=== PATIENT | female | born 1950 | race Caucasian/White ===

== ENCOUNTER → 2016-08-31 | Outpatient (CLI) | payer MEDICARE, BC ==
--- NOTE | 2016-09-01 08:34 | RAD ---
EXAM DESCRIPTION: Knee,Left Complete CLINICAL HISTORY: 65 years, Female, HIP PAIN COMPARISON: None. FINDINGS: No fracture or dislocation. Medial joint compartment almost completely lost with sclerosis and articular irregularity. Moderate narrowing patellofemoral joint space with spurring. Possible small joint effusion. Small amount of popliteal artery calcification noted. IMPRESSION: No acute fracture or dislocation. Virtual complete loss of the medial joint compartment. Moderate narrowing patellofemoral joint space. Electronically signed by: Keshav Cosby MD 09/01/2016 8:33 AM CDT
--- NOTE | 2016-09-01 08:35 | RAD ---
EXAM DESCRIPTION: Pelvis CLINICAL HISTORY: 65 years, Female, HIP PAIN COMPARISON: FINDINGS: No definite fracture or dislocation. Mild degenerative narrowing of both hips fairly symmetric. Pelvic ring intact. Mild degenerative changes lower lumbar spine. Several phleboliths over the lower pelvis. IMPRESSION: Mild degenerative change without fracture or dislocation Electronically signed by: Keshav Cosby MD 09/01/2016 8:34 AM CDT
== END ==
LOC: RAD 09:07
PROVIDERS: ATTEND Orthopaedic Surgery
DX: M25.562 Pain in left knee (principal); M25.862 Other specified joint disorders, left knee; M25.552 Pain in left hip; Z01.818 Encounter for other preprocedural examination

== ENCOUNTER 2016-09-19 05:55 | Day surgery (SDC) | payer MEDICARE, BC ==
--- NOTE | 2016-09-15 09:21 | HP ---
CHIEF COMPLAINT: Right wrist pain and hand numbness. HISTORY OF PRESENT ILLNESS: Adali is a 65-year-old patient with a history of pain in the wrist and numbness in the digits. She localizes the numbness to the median nerve distribution. She has radiation of pain proximal to the wrist and no numbness proximal to the wrist. She has tried conservative measures and has failed. She is requesting surgery. After discussing the risks, benefits and alternatives to that, the patient has given informed consent. PAST SURGICAL HISTORY: 1. Right total knee replacement. MEDICATIONS: 1. Lotrel. 2. [place]. 3. Dexilant. 4. Viibryd. 5. Risperdal. 6. Ambien. ALLERGIES: NO KNOWN DRUG ALLERGIES. CODE STATUS: Full code. IMMUNIZATIONS: Up to date. SOCIAL HISTORY: The patient does not drink, smoke or use any illicit drugs. FAMILY HISTORY: None pertinent to today's complaint. REVIEW OF SYSTEMS: Negative except as indicated in the History of Present Illness. PHYSICAL EXAMINATION: VITAL SIGNS: Blood pressure 147/81. Pulse 81. Height 5'5". Weight 154. MENTAL STATUS: The patient is awake, alert, and is able to give a good history and participate in the physical. The patient is oriented to person, place and time. SKIN: Normal tone and turgor. MUSCULOSKELETAL: She has positive Tinel's today as well as positive Phalen's. She has positive carpal compression test. She maintains full range of motion in all digits. Sensation is intact. The digits are warm and well perfused. ASSESSMENT: 1. Carpal tunnel syndrome. PLAN: The plan at this point is for carpal tunnel release. We have discussed the risks, benefits, and alternatives to that and the patient has given informed consent. #[id number] [facility]
[2016-09-19] MEDS ORDERED: ceFAZolin SODIUM 1 GM VIAL ONE (06:13)
[2016-09-19] MEDS ORDERED: LACTATED RINGERS 1,000 ML ONE (06:13)
[2016-09-19] MEDS ORDERED: SODIUM CHL 0.9% 50ML MIN-BAG+ 50 ML IVPB ONE (06:14)
[2016-09-19] MEDS ORDERED: LIDOCAINE 1% 50 ML VIAL INJ ONE (07:16)
[2016-09-19] MEDS ORDERED: BUPIVACAINE 0.25% INJ 30 ML VIAL INJ ONE (07:16)
[2016-09-19] MEDS ORDERED: fentaNYL CITRATE INJ 50 MCG/ML AMP ONE (09:44)
[2016-09-19] MEDS: ceFAZolin SODIUM 1 GM VIAL ONE ×2 (10:09→10:20)
[2016-09-19] MEDS: VANCOMYCIN HCL INJ 1,000 MG VIAL IVPB ONE ×2 (10:09→10:20)
[2016-09-19] MEDS ORDERED: PROPOFOL 200 MG/20 ML VIAL IV ONE (11:00)
[2016-09-19] MEDS ORDERED: LIDOCAINE 1% 10 ML VIAL INJ ONE (11:00)
[2016-09-19 13:51] VITALS: BP 164/81; TEMP 98.6; O2SAT 99
--- NOTE | 2016-09-20 16:50 | OP ---
DATE OF PROCEDURE: 09/19/16 PREOPERATIVE DIAGNOSIS: 1. Carpal tunnel syndrome. POSTOPERATIVE DIAGNOSIS: 1. Carpal tunnel syndrome. PROCEDURE: 1. Carpal tunnel release. SURGEON: Adalberto Lowe M.D. RECYCLING MANAGER: Juan Olson CST, SA-C ANESTHESIA: Local with sedation. COMPLICATIONS: None. FINDINGS: Thickening of the transverse carpal ligament with narrowing of the median nerve across the carpal tunnel. INDICATION FOR PROCEDURE: Ms. Lamb has a long history of symptoms consistent with carpal tunnel syndrome. She has had a confirmatory EMG. Because of her ongoing symptoms and her severe disruption in daily life, she has requested operative intervention. After discussing the risks, benefits, and alternatives to operative intervention, she has given informed consent for that. DESCRIPTION OF PROCEDURE: The patient was brought to the Operating Room and placed in the supine position. Sedation was administered and local anesthetic was injected into the operative area under sterile conditions. After the injection of anesthetic, the arm was sterilely prepped and draped. A longitudinal incision was made directly overlying the transverse carpal ligament and blunt dissection was carried down to the ligament. The transverse carpal ligament was sharply transected along its length and a [place] elevator was used to ensure complete release of the ligament. Once release had been confirmed, the wound was thoroughly irrigated and the wound was closed with Nylon suture. A sterile dressing was placed and the patient was taken to the Day Surgery Unit. POSTOPERATIVE INSTRUCTIONS: She will be doing range of motion of the digits and she will followup with us in two days. #[id number] [facility]
== END 2016-09-19 11:05 | disposition home or self-care (01) ==
LOC: AMB 05:55
PROVIDERS: ATTEND Orthopaedic Surgery
DX: G56.01 Carpal tunnel syndrome, right upper limb (principal); Z96.651 Presence of right artificial knee joint; Z79.899 Other long term (current) drug therapy
CPT/HCPCS: 01810; 64721; J0690; J3010; J3370; J3490; J7050; J7120

== ENCOUNTER → 2017-02-02 | Outpatient (CLI) | payer MEDICARE, BC | END | disposition home or self-care (01) | LOC: RESP 10:43 | PROVIDERS: ATTEND Orthopaedic Surgery | DX: Z01.818 Encounter for other preprocedural examination (principal); R30.0 Dysuria ==

== ENCOUNTER 2017-02-13 03:58 | Inpatient (IN) | payer MEDICARE, BC ==
--- NOTE | 2017-02-12 09:23 | RAD ---
EXAM DESCRIPTION: XR CHEST 2 VIEWS CLINICAL HISTORY: Preoperative respiratory evaluation. Z01.811 COMPARISON: None TECHNIQUE: PA/lateral FINDINGS: Heart size is normal. Tortuous aorta. Moderate size sliding-type hiatal hernia. The lungs are clear. No acute bony abnormality. IMPRESSION: No acute cardiopulmonary process. Electronically signed by: Fredis Dodd MD 02/12/2017 9:22 AM CDT
--- NOTE | 2017-02-12 13:16 | HP ---
CHIEF COMPLAINT: Knee pain. HISTORY OF PRESENT ILLNESS: Adali is a 65-year-old female with a history of severe knee pain that has been getting progressively worse. She has a history of total knee arthroplasty on the contralateral side. Adali has had conservative measures, however, has failed to gain relief on this side. As such , she has requested operative intervention. After discussing the risks, benefits and alternatives to that, the patient has given informed consent. PAST SURGICAL HISTORY: 1. Cholecystectomy. 2. Right knee arthroscopy. MEDICATIONS: 1. Lotrel. 2. Dexilant. 3. Klonopin. 4. Rye. 5. Remeron. 6. Rexulti. ALLERGIES: NO KNOWN DRUG ALLERGIES. CODE STATUS: Full code. IMMUNIZATIONS: Up to date. SOCIAL HISTORY: The patient does not drink, smoke or use any illicit drugs. FAMILY HISTORY: None pertinent to today's complaint. REVIEW OF SYSTEMS: Negative except as indicated in the History of Present Illness. PHYSICAL EXAMINATION: VITAL SIGNS: Blood pressure 148/73. Pulse 88. Height 5'5". Weight 165. MENTAL STATUS: The patient is awake, alert, and is able to give a good history and participate in the physical. The patient is oriented to person, place and time. SKIN: Normal tone and turgor. HEENT: Normocephalic, atraumatic. Pupils equal, round and reactive. Mucosal membranes are moist. NECK: Normal range of motion. No thyromegaly, no lymphadenopathy. CHEST: Normal respiratory excursion. CARDIAC: Regular rate and rhythm. No murmurs, rubs or gallops. MUSCULOSKELETAL: Bilateral upper extremities show full active range of motion without pain. She has no crepitus or deformity. Sensation is intact. They are warm and well perfused. Strength is 5/5 throughout. The right lower extremity shows a well-healed scar anteriorly. She has no varus/valgus or anterior/posterior laxity. Sensation is intact. It is warm and well perfused. She has no malalignment. The left lower extremity shows severe pain with palpation along the medial aspect of the knee. She has full range of motion of the hip without pain. Sensation is intact throughout the extremity. She has no significant varus/valgus or anterior/posterior laxity. She does have varus deformity to the knee. She has crepitus throughout the range of motion. IMAGING: X-rays show end-stage osteoarthritis. ASSESSMENT: 1. Osteoarthritis. PLAN: The plan at this point is for total knee arthroplasty. We have discussed the risks, benefits, and alternatives to that and the patient has given informed consent. [facility][id number] [facility]
[2017-02-13] MEDS ORDERED: TRANEXAMIC ACID 1,000 MG/10 ML VIAL ONE ×2 (05:49→05:51)
[2017-02-13] MEDS ORDERED: SODIUM CHL 0.9% 100ML MINI-BAG 100 ML IVPB ONE (05:49)
[2017-02-13] MEDS ORDERED: LACTATED RINGERS 1,000 ML ONE ×2 (05:49→06:14)
[2017-02-13] MEDS ORDERED: ceFAZolin SODIUM 1 GM VIAL ONE ×2 (05:50→06:26)
[2017-02-13] MEDS ORDERED: VANCOMYCIN HCL INJ 1,000 MG VIAL IVPB ONE ×3 (05:51→16:24)
[2017-02-13] MEDS ORDERED: SODIUM CHLORIDE 0.9% 250ML 250 ML ONE ×2 (05:51→16:24)
[2017-02-13] MEDS ORDERED: SODIUM CHLORIDE 0.9% 100ML 100 ML IVPB ONE (05:51)
[2017-02-13] MEDS ORDERED: fentaNYL CITRATE INJ 50 MCG/ML AMP ONE (06:14)
[2017-02-13] MEDS ORDERED: MORPHINE SULFATE *EPIDURAL* 0.5 MG/ML VIAL ONE (06:14)
[2017-02-13] MEDS ORDERED: BUPIVACAINE 0.25% W/EPI 50 ML VIAL INJ ONE (06:25)
[2017-02-13] MEDS ORDERED: MORPHINE SULFATE INJ 10 MG/ML VIAL IM PRN (06:46)
[2017-02-13] MEDS ORDERED: traMADol HCL 50 MG TAB PO PRN (06:46)
[2017-02-13] MEDS ORDERED: TRANEXAMIC ACID INJ 1,000 MG in SODIUM CHLORIDE 0.9% 100ML 100 ML IVPB ONE (06:46)
[2017-02-13] MEDS ORDERED: ALUMINUM & MAGNESIUM HYDROXIDE 30 ML UD PO PRN (06:46)
[2017-02-13] MEDS ORDERED: SODIUM CHLORIDE 0.9% (FLUSH) 10 ML SYG IV PRN (06:46)
[2017-02-13] MEDS ORDERED: PROMETHAZINE HCL INJ 12.5 MG in SODIUM CHLORIDE 0.9% 50ML 50 ML IVPB PRN (06:46)
[2017-02-13] MEDS ORDERED: ZOLPIDEM TARTRATE 5 MG TAB PO PRN (06:46)
[2017-02-13] MEDS ORDERED: BENZOCAINE-MENTH LOZ (CEPACOL) 1 EA LOZ MT PRN (06:46)
[2017-02-13] MEDS ORDERED: MORPHINE SULFATE INJ 10 MG/ML VIAL IV PRN (06:46)
[2017-02-13] MEDS ORDERED: ACETAMINOPHEN 500 MG TAB PO PRN (06:46)
[2017-02-13] MEDS ORDERED: NALOXONE HCL INJ 0.4 MG/ML VIAL IV PRN (06:46)
[2017-02-13] MEDS ORDERED: ONDANSETRON INJ 4 MG/2 ML VIAL IV PRN (06:46)
[2017-02-13] MEDS ORDERED: TEMAZEPAM 15 MG CAP PO PRN (06:46)
[2017-02-13] MEDS ORDERED: PROMETHAZINE HCL INJ 25 MG in SODIUM CHLORIDE 0.9% 50ML 50 ML IVPB PRN (06:46)
[2017-02-13] MEDS ORDERED: MAGNESIUM HYDROXIDE 30 ML UD PO PRN (06:46)
[2017-02-13] MEDS ORDERED: BISACODYL SUPPOSITORY 10 MG PR PRN (06:46)
[2017-02-13] MEDS ORDERED: ACETAMINOPHEN 325 MG TAB PO PRN (06:46)
[2017-02-13] MEDS ORDERED: MORPHINE PCA 1 MG/ML 100ML 1 BAG in PREMIX BAG 1 BAG IVPB SCH (07:00)
[2017-02-13] MEDS ORDERED: MORPHINE PCA 1 MG/ML 100 ML BAG IVPB ONE (09:34)
[2017-02-13] MEDS ORDERED: PROPOFOL 200 MG/20 ML VIAL IV ONE (10:00)
[2017-02-13] MEDS: CELECOXIB 100 MG CAP PO SCH ×2 (11:32→18:07)
[2017-02-13] MEDS: IV SET AND CAP CHANGE INJ INJ SCH (11:32)
[2017-02-13] MEDS: MAGNESIUM OXIDE 400 MG TAB PO SCH (11:32)
[2017-02-13] MEDS ORDERED: CEFAZOLIN SODIUM 2 GRAMS IV 50 ML IVPB ONE ×2 (16:22→20:36)
[2017-02-13] MEDS: CEFAZOLIN SODIUM 2 GRAMS IV 2 GM in PREMIX BAG 1 BAG IVPB SCH (16:42)
--- NOTE | 2017-02-13 17:20 | RAD ---
EXAM DESCRIPTION: Knee,Left 2 or More Views CLINICAL HISTORY: TKA COMPARISON: Left knee radiographs 08/31/2016. TECHNIQUE: AP and cross-table lateral images left knee. IMPRESSION: Left total knee arthroplasty has been performed. Customary position and near-anatomic alignment. Bone abutting the components is unremarkable. Typical postsurgical soft tissue changes. No abnormal radiodense objects in the joint spaces or soft tissues. Electronically signed by: Juan Perez MD 02/13/2017 5:19 PM CDT
[2017-02-13] MEDS: AMLODIPINE BESYLATE BENAZEPRIL PO SCH (17:54)
[2017-02-13] MEDS: VANCOMYCIN HCL INJ 1,000 MG in SODIUM CHLORIDE 0.9% 250ML 250 ML IVPB SCH (18:07)
[2017-02-13] MEDS: DEX 5% W/NACL 0.45% 1000ML 1,000 ML IVS PRN (18:08)
[2017-02-13] MEDS: HYDROcodone 10MG/APAP 325MG 1 EA TAB PO PRN ×2 (18:17→22:25)
--- NOTE | 2017-02-13 18:28 | CONS ---
DATE OF CONSULTATION: 02/13/17 HISTORY OF PRESENT ILLNESS: This 66 year-old white female was admitted to the hospital earlier this morning for elective orthopedic surgical intervention because of chronic knee pain on the left. She had previously had a total knee replacement on the right. She has had chronic low back pain apparently from a facet syndrome which has contributed to significant pain through the years. She tolerated her procedure performed earlier this morning by Dr. Adalberto Lowe, orthopedic surgeon, quite well. She is now entering into the postoperative period with rehabilitation and physical therapy to improve functioning before being able to successfully return home. PAST MEDICAL HISTORY: 1. Hypertension. 2. Low back pain with a facet syndrome. 3. Recent diagnoses of depression being currently placed under psychiatric assistance and showing some improvement. PAST SURGICAL HISTORY: 1. Cholecystectomy. 2. Carpal tunnel on the right. 3. Hysterectomy with associated bladder suspension procedures as well as a previous total right knee surgery. 4. Total left knee surgery was performed earlier today. CURRENT MEDICATIONS: Please refer to list for verified home medications taken. ALLERGIES: DARVON. FAMILY HISTORY: Positive with the mother with lymphoma while grandmother had diabetes mellitus and hypertension. SOCIAL HISTORY: The patient has worked for years for [employer]. She stopped smoking about 8 years ago. REVIEW OF SYSTEMS: No significant weight change. HEENT: Hearing and vision appears to be fairly good. LUNGS: No significant shortness of breath, cough or hemoptysis. CARDIOVASCULAR: No significant chest pains or palpitations. ABDOMEN: No nausea, vomiting, diarrhea or significant constipation with last bowel movement being earlier this morning. EXTREMITIES: Significant pain especially in the left knee after having the right knee replaced earlier. Chronic back pain is a problem. NEUROLOGIC: No focal weaknesses. No significant headaches. PHYSICAL EXAMINATION: VITAL SIGNS: Afebrile, pulse 74, blood pressure 122/67, pulse oximetry 93% on 2 liters. Weight is yet to be taken. GENERAL: The patient is awake and alert, eating some clear liquids. Complaining of significant pain especially aggravated by the recent passive range of motion exercise. Percutaneous analgesic pump will continue with the morphine and close observation to ascertain its effectiveness in assisting with pain control. CHEST: Lungs are generally clear. HEART: Tones regular. ABDOMEN: Soft. No organomegaly, masses or tenderness. EXTREMITIES: The dressing on the left knee appears to be clean. No bleeding is noted. The patient is having discomfort and will be observed closely. Degree of pruritus or itching is noted over especially part of the back possibly a residual of the Hibiclens baths performed earlier this morning. LABORATORY: Laboratory studies show a urinalysis showed a trace of blood with rare bacteria, otherwise clean. No cultures obtained and the urine is very clean on gross examination at this time. ASSESSMENT: 1. Immediate postoperative day zero total left knee arthroplasty. 2. Significant osteoarthritis failing to respond to outpatient therapy and requiring surgical intervention for symptom relief having successfully gone through the total knee arthroplasty earlier this morning. 3. Chronic low back pain described as chronic facet syndrome of the lumbar vertebrae being followed by orthopedist. 4. Chronic hypertension. 5. Chronic depression currently under psychiatric followup and management showing some improvement. PLAN: The patient will be continued on some of her home medications with many of the medicines being taken from her home supply because they are non- formulary. Observe closely and if analgesia is insufficient, must consider supplementing with the Hydrocodone p.o., and if still not improving, then consider Dilaudid EMERGENCY PHYSICIAN pump but only after adjusting the morphine to its maximum useful dosage levels. Observe closely. Encouraged to breathe deeply and to actively contract and relax the muscles of the lower extremities. Continue with DVT prophylaxis with SCDs and Lovenox administration. Close followup and initiation of physical therapy rehabilitation at this time. #[id number] [facility]
[2017-02-13] MEDS ORDERED: OLANZapine ODT 5 MG TAB ONE (20:34)
[2017-02-13] MEDS ORDERED: MIRTAZAPINE 15 MG TAB ONE (20:34)
[2017-02-13] MEDS ORDERED: ENOXAPARIN SODIUM 30 MG/0.3 ML SYG SUBCU ONE (20:35)
[2017-02-13] MEDS: DOCUSATE CALCIUM 240 MG CAP PO SCH (21:00)
[2017-02-13] MEDS: OLANZAPINE 5 MG PO SCH (21:04)
[2017-02-13] MEDS: MIRTAZAPINE 45 MG PO SCH (21:04)
[2017-02-13] MEDS: NON-FORMULARY MEDICATION 1 EA MIS (Duloxetine Hcl [Cymbalta] 60 MG) PO SCH ×2 (21:04→21:08)
[2017-02-13] MEDS: CYCLOBENZAPRINE HCL 10 MG TAB PO PRN (22:05)
[2017-02-13] MEDS: ENOXAPARIN SODIUM 30 MG/0.3 ML SYG SUBCU SCH (23:09)
[2017-02-14] MEDS: CEFAZOLIN SODIUM 2 GRAMS IV 2 GM in PREMIX BAG 1 BAG IVPB SCH ×2 (00:10→08:19)
[2017-02-14] MEDS: HYDROcodone 10MG/APAP 325MG 1 EA TAB PO PRN ×4 (03:16→18:17)
[2017-02-14] MEDS ORDERED: SODIUM CHLORIDE 0.9% 250ML 250 ML ONE (03:46)
[2017-02-14] MEDS ORDERED: VANCOMYCIN HCL INJ 1,000 MG VIAL IVPB ONE (03:47)
[2017-02-14] MEDS: VANCOMYCIN HCL INJ 1,000 MG in SODIUM CHLORIDE 0.9% 250ML 250 ML IVPB SCH (06:10)
[2017-02-14] MEDS ORDERED: CEFAZOLIN SODIUM 2 GRAMS IV 50 ML IVPB ONE (07:12)
[2017-02-14] MEDS: CELECOXIB 100 MG CAP PO SCH ×2 (07:29→16:29)
[2017-02-14] MEDS: AMLODIPINE BESYLATE BENAZEPRIL PO SCH (08:10)
[2017-02-14] MEDS: NON-FORMULARY MEDICATION 1 EA MIS (Dexlansoprazole [Dexilant] 60 MG) PO SCH (08:11)
[2017-02-14] MEDS: MAGNESIUM OXIDE 400 MG TAB PO SCH (08:12)
[2017-02-14] MEDS: NON-FORMULARY MEDICATION 1 EA MIS (Duloxetine Hcl [Cymbalta] 60 MG) PO SCH (08:13)
--- NOTE | 2017-02-14 08:26 | PN ---
DATE: 02/13/17 POSTOPERATIVE CHECK SUBJECTIVE: Ms. Lamb is doing well and she is resting without any pain. OBJECTIVE: Afebrile. Vital signs stable. Dressing is clean, dry and intact. ASSESSMENT: Status post total knee arthroplasty. PLAN: She will begin weight-bearing as tolerated on postoperative day 1. She is on her CPM and we will have working on that today. [facility][id number] [facility]
--- NOTE | 2017-02-14 08:36 | OP ---
DATE OF PROCEDURE: 02/13/17 PREOPERATIVE DIAGNOSIS: 1. Left knee osteoarthritis. POSTOPERATIVE DIAGNOSIS: 1. Left knee osteoarthritis. PROCEDURE: 1. Left total knee arthroplasty. SURGEON: Adalberto Lowe MD. PLUMBING ASSEMBLER: Juan Olson CST, SA-C. ANESTHESIA: General. COMPLICATIONS: None. FINDINGS: Severe osteoarthritis of the knee with varus deformity. INDICATION: Ms. Lamb has a long history of pain and has failed conservative measures. She has had ongoing disability from her discomfort and has requested operative intervention. After discussing the risks, benefits and alternatives to that, the patient has given informed consent for total knee arthroplasty. PROCEDURE: The patient was brought to the Operating Room and placed in supine position. General anesthesia was induced and the patient's leg was sterilely prepped and draped. Following prepping and draping, the distal femur was exposed and using an intramedullary guide, the distal femoral cut was made. The appropriate sized cutting block was measured, pinned into place, and the anterior, posterior, and chamfer cuts were made. The ACL was transected and the tibia was subluxed. Both the medial and lateral menisci were removed. An intramedullary guide was used to make the proximal tibial cut. The appropriate sized base plate was placed and a trial polyethylene was placed. The trial femur was placed, the knee was reduced, and the knee was taken through a range of motion. The knee was stable in anterior, posterior, varus and valgus stress. The patella tracked anatomically without evidence of subluxation or dislocation. After trialing, the trial components were removed and the bony surfaces were thoroughly irrigated with saline. Following irrigation, the surfaces were dried and the final components were cemented into place. The excess cement was removed and the remaining cement was allowed to cure. The knee was again taken through a range of motion to confirm stability. The wound was then irrigated with saline and closure was performed using PDS to approximate the arthrotomy followed by closure of the subcutaneous tissues with a combination of running and interrupted Monocryl sutures. Sterile dressing was placed. The patient was awoken from anesthesia and taken to Recovery. POSTOPERATIVE INSTRUCTIONS: The patient will be weight-bearing as tolerated on postoperative day 1. COMPONENTS: VisiKard Triathlon knee, size 3 femur, size 3 tibia, 9 mm insert. #[id number] [facility]
[2017-02-14] MEDS: ENOXAPARIN SODIUM 30 MG/0.3 ML SYG SUBCU SCH ×2 (10:48→22:30)
[2017-02-14] MEDS ORDERED: MIRTAZAPINE 15 MG TAB ONE (20:57)
[2017-02-14] MEDS ORDERED: OLANZapine ODT 5 MG TAB ONE (20:57)
[2017-02-14] MEDS ORDERED: ZOLPIDEM TARTRATE 10 MG TAB PO PRN (21:00)
[2017-02-14] MEDS: DOCUSATE CALCIUM 240 MG CAP PO SCH (21:11)
[2017-02-14] MEDS: CYCLOBENZAPRINE HCL 10 MG TAB PO PRN (21:11)
[2017-02-14] MEDS: MIRTAZAPINE 45 MG PO SCH (21:11)
[2017-02-14] MEDS: DEX 5% W/NACL 0.45% 1000ML 1,000 ML IVS PRN (21:13)
[2017-02-14] MEDS: OLANZAPINE 5 MG PO SCH (21:13)
[2017-02-15] MEDS: CYCLOBENZAPRINE HCL 10 MG TAB PO PRN ×2 (07:25→16:29)
[2017-02-15] MEDS: HYDROcodone 10MG/APAP 325MG 1 EA TAB PO PRN ×4 (09:36→21:48)
[2017-02-15] MEDS: MAGNESIUM OXIDE 400 MG TAB PO SCH (09:37)
[2017-02-15] MEDS: CELECOXIB 100 MG CAP PO SCH ×2 (09:37→16:29)
[2017-02-15] MEDS: AMLODIPINE BESYLATE BENAZEPRIL PO SCH (09:37)
[2017-02-15] MEDS: NON-FORMULARY MEDICATION 1 EA MIS (Dexlansoprazole [Dexilant] 60 MG) PO SCH (09:38)
[2017-02-15] MEDS: NON-FORMULARY MEDICATION 1 EA MIS (Duloxetine Hcl [Cymbalta] 60 MG) PO SCH (09:38)
[2017-02-15] MEDS: SODIUM CHLORIDE 0.9% (FLUSH) 10 ML SYG IV SCH ×2 (09:39→21:36)
--- NOTE | 2017-02-15 10:42 | PN ---
DATE: 02-14-17 SUBJECTIVE: The patient has tolerated her rehabilitation quite well today. She has been able to bear some weight. Slightly increased pain today compared to yesterday after the Astramorph has been absorbed. Appetite is fairly good. Chronic low back pain seems to be less of a problem. She is tolerating the analgesic assistance at this time. OBJECTIVE: Temperature 98.6, pulse 87, blood pressure 113/63, pulse oximetry 91 %. Weight 79.5 kilos. Hemoglobin 9.1 postoperatively earlier this morning. Urinalysis a few days ago as generally clean. No cultures obtained. Lungs are clear. Heart tones regular. The patient is awake, alert, and cooperative. Abdomen is soft. ASSESSMENT: 1. Postoperative day #1 left total knee arthroplasty performed by Dr. Lowe, orthopedic surgeon. 2. Chronic osteoarthritis failing outpatient therapy and requiring surgical intervention to assist with symptom control. 3. Chronic low back pain described as a chronic facet syndrome of the lumbar vertebra being followed by orthopedist. 4. Chronic hypertension. 5. Chronic depression, currently receiving psychiatric followup and management with improvement noted clinically. PLAN: Continue rehabilitation and make plans for [facility] when stable for outpatient therapy and safe to return home. #[id number] [facility]
--- NOTE | 2017-02-15 10:47 | PN ---
DATE: 02/15/17 SUBJECTIVE: Adali is doing well although she is having some low back spasms. She has a history of low back pain. OBJECTIVE: Afebrile. Vital signs stable. Wound is clean. There are no signs or symptoms of infection. ASSESSMENT: Status post total knee arthroplasty. PLAN: She will continue with her physical therapy. We are going to try to work on controlling her back pain with some muscle relaxants and pain medicine as needed. #[id number] [facility]
[2017-02-15] MEDS: ENOXAPARIN SODIUM 30 MG/0.3 ML SYG SUBCU SCH ×2 (11:29→22:59)
[2017-02-15] MEDS: OLANZAPINE 5 MG PO SCH (21:36)
[2017-02-15] MEDS: DOCUSATE CALCIUM 240 MG CAP PO SCH (21:36)
[2017-02-15] MEDS: MIRTAZAPINE 45 MG PO SCH (21:36)
--- NOTE | 2017-02-15 21:48 | PN ---
DATE: 02/15/17 SUBJECTIVE: The patient is lying in the bed and in many regards looks better today than yesterday. She says the pain is better today as well. Back pain is tolerable but has been a significant factor in the past. SCDs continue with DVT prophylaxis program in place. OBJECTIVE: Afebrile, pulse 89, blood pressure 133/78, pulse oximetry 94% on 4 liters. Hemoglobin yesterday after surgery is 9.1 and we do not have the preoperative hemoglobin available at this time. Will recheck another blood count tomorrow. LUNGS: Clear though diminished in breath sounds. HEART: Tones regular. ABDOMEN: Soft. No bowel movement yet. ASSESSMENT: 1. Postoperative day number 2 left total knee arthroplasty performed by Dr. Lowe, orthopedic surgeon. 2. Chronic osteoarthritis having failed outpatient therapy and requiring surgical intervention to assist with symptom control. 3. Chronic low back pain described as a chronic facet syndrome of the lumbar vertebrae being followed by orthopedist. 4. Chronic hypertension. 5. Chronic depression currently receiving psychiatric followup and management with improvement noted clinically. PLAN: Will recheck a CBC and BMP tomorrow because of the fairly significant anemia present. Reevaluate. Continue rehab. If hemoglobin is worse, this may be interfering somewhat with her ability to participate with her rehab program. #[id number] [facility]
[2017-02-16] MEDS: CYCLOBENZAPRINE HCL 10 MG TAB PO PRN (04:25)
[2017-02-16] MEDS: MAGNESIUM OXIDE 400 MG TAB PO SCH (08:22)
[2017-02-16] MEDS: CELECOXIB 100 MG CAP PO SCH (08:22)
[2017-02-16] MEDS: HYDROcodone 10MG/APAP 325MG 1 EA TAB PO PRN ×2 (08:22→12:17)
[2017-02-16] MEDS: IV SET AND CAP CHANGE INJ INJ SCH (08:22)
[2017-02-16] MEDS: AMLODIPINE BESYLATE BENAZEPRIL PO SCH (08:22)
[2017-02-16] MEDS: NON-FORMULARY MEDICATION 1 EA MIS (Dexlansoprazole [Dexilant] 60 MG) PO SCH (08:22)
[2017-02-16] MEDS: NON-FORMULARY MEDICATION 1 EA MIS (Duloxetine Hcl [Cymbalta] 60 MG) PO SCH (08:22)
[2017-02-16] MEDS: SODIUM CHLORIDE 0.9% (FLUSH) 10 ML SYG IV SCH (08:24)
[2017-02-16] MEDS: ENOXAPARIN SODIUM 30 MG/0.3 ML SYG SUBCU SCH (10:25)
--- NOTE | 2017-02-16 15:03 | DS ---
SUPERVISING PHYSICIAN: Landon Wallace MD DISCHARGE DIAGNOSIS: 1. Chronic osteoarthritis, status post left total knee arthroplasty per by Dr. Lowe, orthopedic surgeon, postoperative day #3. 2. Chronic low back pain. 3. Chronic hypertension. 4. Chronic depression currently receiving psychiatric followup and management. HISTORY OF PRESENT ILLNESS: This is a 66-year-old female patient who was admitted on 02/13/17 to the hospital for a left total knee arthroplasty per Dr. Adalberto Lowe, orthopedic surgeon. She had previous had a right total knee arthroplasty. She has significant arthritis and has limited her daily functioning. She underwent left total knee arthroplasty and postoperatively did well. HOSPITAL COURSE: She has continued with her physical therapy and strengthening. She has improved daily, but it it is still going very slowly. She did have some pain issues postoperatively on day 1. Those were controlled with her pain medications. At this point, she can be discharged for Swing Bed admission. DISCHARGE PLAN: the patient will be discharged from the Acute Care setting to Swing Bed status. She will continue with strengthening and conditioning per physical therapy. Her home medications will be continued as well as her pain medications and her muscle relaxers. Hopefully, she can be discharged home next week at some point for outpatient rehabilitation. DISCHARGE MEDICATIONS: 1. Dexilant. 2. Amlodipine. 3. Ambien. 4. Hydrocodone. 5. Klonopin. 6. Remeron. 7. Zyprexa. 8. Cymbalta. 9. Xarelto. Dr. Wallcae is the collaborating physician and available for consultation. #[id number] [facility]
[2017-02-16 15:20] VITALS: BP 127/68; TEMP 98.1; O2SAT 92
[2017-02-16] MEDS ORDERED: MAGNESIUM HYDROXIDE 30 ML UD PO ONE (21:00)
[2017-02-16] MEDS ORDERED: BISACODYL SUPPOSITORY 10 MG PR ONE (21:00)
== END 2017-02-16 15:24 | disposition swing bed (61) | DRG 470 ==
LOC: AMB 03:58 → MS 11:29
PROVIDERS: ADMIT Orthopaedic Surgery; ATTEND Emergency Medicine
PROC: 0SRD0J9 Replacement of Left Knee Joint with Synthetic Substitute, Cemented, Open Approach (ICD-10-PCS; principal; 2017-02-13 07:00)
DX: M17.12 Unilateral primary osteoarthritis, left knee (principal); G89.29 Other chronic pain; M54.5 Low back pain; I10 Essential (primary) hypertension; F32.9 Major depressive disorder, single episode, unspecified; D64.9 Anemia, unspecified; Z88.6 Allergy status to analgesic agent; Z79.899 Other long term (current) drug therapy

== ENCOUNTER 2017-02-16 15:35 | Inpatient (IN) | payer MEDICARE, BC ==
--- NOTE | 2017-02-16 15:37 | HP ---
SUPERVISING PHYSICIAN: Landon Wallace M.D. CHIEF COMPLAINT: Strengthening and conditioning for left total knee arthroplasty. HISTORY OF PRESENT ILLNESS: This is a 66 year-old female patient who was admitted on 02/13/17 for elective orthopedic surgical intervention because of chronic left knee pain. She has previously had a right total knee arthroplasty. Due to the significant pain, she had requested Dr. Adalberto Lowe, orthopedic surgeon, for surgical intervention for a left TKA. Postoperatively she did very well. She did have some pain issues on postoperative day #1 and her physical therapy, although it progressed slowly it progressed well. She was discharged from the Acute Care setting for Swing Bed for strengthening and conditioning. PAST MEDICAL HISTORY: 1. Hypertension. 2. Low back pain with facet syndrome. 3. Recent diagnosis of depression currently under psychiatric assistance for medications showing some improvement. 4. Cholecystectomy. 5. Carpal tunnel on the right. 6. Hysterectomy with associated bladder suspension. 7. Previous right total knee arthroplasty. 8. Left total knee arthroplasty. PAST SURGICAL HISTORY: CURRENT MEDICATIONS: Per the EMR and awaiting verification. ALLERGIES: DARVON. FAMILY HISTORY: Noncontributory. SOCIAL HISTORY: She has worked for years for [employer]. She stopped smoking approximately 8 years ago. She denies any ETOH or illicit drug abuse. REVIEW OF SYSTEMS: Negative except as per History of Present Illness. PHYSICAL EXAMINATION: VITAL SIGNS: Temperature 98.1, heart rate 97, blood pressure 127/68, respiratory rate 16, O2 sats are 92% on 3 liters nasal cannula. GENERAL: This is a 66 year-old female patient lying in her hospital bed. She is in no acute distress. HEENT: Normocephalic and atraumatic. Pupils are equal and reactive. Oropharynx is clear. NECK: Supple without mass. CHEST: Clear to auscultation bilaterally. Somewhat diminished at the bases. There is equal rise and fall of the chest with inspiration and expiration. CARDIOVASCULAR: Regular rate and rhythm. ABDOMEN: Soft, nondistended, non-tender. Bowel sounds are positive. EXTREMITIES: No cyanosis, clubbing or edema. She does have a dressing in place to the left knee that is dry and intact. Bilateral pedal pulses are palpable at +2. SKIN: Warm and dry. NEUROLOGIC: She has somewhat flat affect, but otherwise she is awake, alert and oriented times three. LABORATORY: There are no labs or films to report at this time. ASSESSMENT: 1. Osteoarthritis of the left knee status post left total knee arthroplasty postoperative day #[address] Adalberto Lowe, orthopedic surgeon. 2. Chronic low back pain. 3. Chronic hypertension. 4. Chronic depression. PLAN: We will admit the patient to Swing Bed. She will continue with her physical therapy for strengthening and conditioning. I have encouraged good pulmonary hygiene and I have added some Xopenex breathing treatments as well as some EzPAP and bronchial hygiene. Will continue her home medications. We will continue to monitor her closely and followup as needed. Dr. Wallace is the collaborating physician available for consultation. [facility][id number] [facility]
[2017-02-16] MEDS ORDERED: LEVALBUTEROL NEBS 1.25 MG/3 ML VIAL NEB PRN (15:39)
[2017-02-16] MEDS ORDERED: MAGNESIUM HYDROXIDE 30 ML UD PO PRN (15:39)
[2017-02-16] MEDS ORDERED: SODIUM PHOS/BIPHOS ENEMA ADULT 133 ML BTTL PR PRN (15:39)
[2017-02-16] MEDS ORDERED: ACETAMINOPHEN 500 MG TAB PO PRN (15:39)
[2017-02-16] MEDS ORDERED: ALUM & MAG HYDROX-SIMETHICONE 30 ML UD PO PRN (15:44)
[2017-02-16] MEDS: HYDROcodone 10MG/APAP 325MG 1 EA TAB PO PRN (17:48)
[2017-02-16] MEDS ORDERED: LEVALBUTEROL NEBS 1.25 MG/3 ML VIAL INH SCH (20:00)
[2017-02-16] MEDS ORDERED: DULoxetine HCL 30 MG CAP PO ONE (20:50)
[2017-02-16] MEDS ORDERED: MIRTAZAPINE 15 MG TAB ONE (20:50)
[2017-02-16] MEDS ORDERED: OLANZapine ODT 5 MG TAB ONE (20:50)
[2017-02-16] MEDS: NON-FORMULARY MEDICATION 1 EA MIS (Duloxetine Hcl [Cymbalta] 60 MG) PO SCH ×2 (20:58→21:33)
[2017-02-16] MEDS: OLANZAPINE 5 MG PO SCH (20:58)
[2017-02-16] MEDS: MIRTAZAPINE 45 MG PO SCH (20:59)
[2017-02-17] MEDS: HYDROcodone 10MG/APAP 325MG 1 EA TAB PO PRN ×5 (02:02→22:26)
[2017-02-17] MEDS ORDERED: DOCUSATE SODIUM 100 MG CAP ONE (07:47)
[2017-02-17] MEDS ORDERED: RIVAROXABAN 10 MG TAB ONE (07:47)
[2017-02-17] MEDS ORDERED: LEVALBUTEROL NEBS 1.25 MG/3 ML VIAL NEB SCH (08:00)
[2017-02-17] MEDS: DOCUSATE SODIUM 100 MG CAP PO SCH (09:43)
[2017-02-17] MEDS: RIVAROXABAN 10 MG TAB PO SCH (09:43)
[2017-02-17] MEDS: AMLODIPINE BESYLATE BENAZEPRIL PO SCH (09:44)
[2017-02-17] MEDS: NON-FORMULARY MEDICATION 1 EA MIS (Dexlansoprazole [Dexilant] 60 MG) PO SCH (09:44)
[2017-02-17] MEDS: NON-FORMULARY MEDICATION 1 EA MIS (Duloxetine Hcl [Cymbalta] 60 MG) PO SCH (10:00)
[2017-02-17] MEDS: CYCLOBENZAPRINE HCL 10 MG TAB PO PRN ×2 (11:00→19:42)
[2017-02-17] MEDS ORDERED: HYDROcodone 10MG/APAP 325MG 1 EA TAB PO ONE (12:49)
--- NOTE | 2017-02-17 16:10 | PN ---
SUPERVISING PHYSICIAN: Landon Wallace MD DATE: 02/17/17 SUBJECTIVE: The patient is sitting up in the chair in her hospital room. She is very tearful and complains of her back hurting. She has no complaints of chest pains, shortness of breath nausea or vomiting or constipation. Her family is at the bedside and they are encouraging her to participate more fully in her physical therapy as well as her pulmonary hygiene. OBJECTIVE: VITAL SIGNS: Afebrile. Heart rate 85, blood pressure 157/76. Respiratory rate 20, 02 saturation is 90 to 95%, it was reported that it drops into the 80s with her physical therapy and with 3 liters of nasal cannula comes back up to the low 90s at rest. CHEST: Essentially clear to auscultation bilaterally. CARDIAC: Regular rate and rhythm. ABDOMEN: Soft, nondistended, non-tender. Bowel sounds are positive. EXTREMITIES: Bilateral pedal pulses are palpable, +2. The dressing to her left knee is dry and intact. NEUROLOGIC: She is awake, alert, and oriented x3 but she seems very depressed. LABORATORY: There are no labs or films to report at this time. ASSESSMENT: 1. Osteoarthritis of the left knee status post left total knee arthroplasty postoperative day #4, performed by Dr. Adalberto Lowe, orthopedic surgeon, presently on Swing Bed admission for strengthening and conditioning. 2. Mild hypoxemia. 3. Chronic low back pain. 4. Chronic hypertension. 5. Chronic depression. PLAN: We will continue present supportive care. She will continue with her strengthening and conditioning per physical therapy. Orthopedic issues will be per Dr. Lowe. I have given her an extra Byron today for her back pain, otherwise it will continue at her as needed status. I have ordered percussion IPPB and aggressive pulmonary hygiene due to her low oxygen saturations. She has also been encouraged to do her incentive spirometry every 2 hours and her sister is at the bedside and will encourage her to do so. She is very depressed and is having a difficult time with participating in all of her activities but she has been educated that she could get pneumonia if she does not do pulmonary hygiene as ordered. She is also an ex-smoker. I will keep close watch on her reproduction status. Otherwise, we will known to to monitor her closely and follow as needed. Dr. Wallace is the collaborating physician available for consultation. #[id number] [facility]
[2017-02-17] MEDS: LEVALBUTEROL NEBS 1.25 MG/3 ML VIAL NEB SCH ×2 (16:22→20:20)
[2017-02-17] MEDS ORDERED: OLANZapine ODT 5 MG TAB ONE (19:38)
[2017-02-17] MEDS ORDERED: MIRTAZAPINE 15 MG TAB ONE (19:38)
[2017-02-17] MEDS: MIRTAZAPINE 45 MG PO SCH (20:38)
[2017-02-17] MEDS: OLANZAPINE 5 MG PO SCH (20:39)
--- NOTE | 2017-02-18 06:30 | RAD ---
EXAM DESCRIPTION: Chest,2 Views CLINICAL HISTORY: hypoxia COMPARISON: 02/12/2017 FINDINGS: Frontal and lateral views of the chest. Atherosclerotic calcification of the aortic arch. Heart is not enlarged. No consolidation, pneumothorax, or pleural effusion. No displaced rib fractures identified. Retrocardiac opacity likely representing a hiatal hernia. IMPRESSION: 1. No acute pulmonary process identified. Electronically signed by: Mike Servin 02/18/2017 6:29 AM CDT
[2017-02-18] MEDS: HYDROcodone 10MG/APAP 325MG 1 EA TAB PO PRN ×4 (06:52→21:11)
[2017-02-18] MEDS: LEVALBUTEROL NEBS 1.25 MG/3 ML VIAL NEB SCH ×4 (08:37→20:15)
[2017-02-18] MEDS: NON-FORMULARY MEDICATION 1 EA MIS (Duloxetine Hcl [Cymbalta] 60 MG) PO SCH (09:33)
[2017-02-18] MEDS: AMLODIPINE BESYLATE BENAZEPRIL PO SCH (09:34)
[2017-02-18] MEDS: NON-FORMULARY MEDICATION 1 EA MIS (Dexlansoprazole [Dexilant] 60 MG) PO SCH (09:34)
[2017-02-18] MEDS: DOCUSATE SODIUM 100 MG CAP PO SCH (09:35)
[2017-02-18] MEDS: RIVAROXABAN 10 MG TAB PO SCH (09:35)
[2017-02-18] MEDS: CYCLOBENZAPRINE HCL 10 MG TAB PO PRN ×2 (09:35→18:20)
--- NOTE | 2017-02-18 12:07 | PN ---
DATE: 02/18/17 SUPERVISING PHYSICIAN: Landon Wallace M.D. SUBJECTIVE: The patient is walking in the halls with Physical Therapy. She is using her walker. She feels much better today than yesterday, although she still complains of back pain. Denies any chest pain, shortness of breath, nausea, vomiting or diarrhea. OBJECTIVE: Temperature 98.1, heart rate 86, blood pressure 129/75, respiratory rate 18, O2 sats are running between 90 to 94% on 2 liters nasal cannula. RESPIRATORY: Lungs are clear to auscultation bilaterally. CARDIAC: Regular rate and rhythm. EXTREMITIES: The dressing to her left knee is dry and intact. NEUROLOGIC: She is awake, alert and oriented times three. She does not seems quite as depressed today as she was yesterday. LABORATORY: There are no labs to report at this time. RADIOLOGY: Chest x-ray per radiology interpretation shows no acute cardiopulmonary process. ASSESSMENT: 1. Osteoarthritis of the left knee status post left total knee arthroplasty postoperative day #[address] Adalberto Lowe, orthopedic surgeon, presently on Swing Bed admission for strengthening and conditioning. 2. Mild hypoxemia in a patient with a past history of smoking that is now mostly resolved. 3. Chronic low back pain. 4. Chronic hypertension. 5. Chronic depression. PLAN: We will continue present supportive care. She will continue with her physical therapy for strengthening and conditioning. Yesterday, I ordered aggressive pulmonary hygiene including percussion and IPPB. We will continue with that. I have encouraged her to continue with her coughing and deep breathing as well as the use of the incentive spirometry. Hopefully she can be discharged in a couple of days from Swing Bed. Otherwise we will continue to monitor her closely and follow as needed. Dr. Wallace is the collaborating physician available for consultation. #[id number] [facility]
[2017-02-18] MEDS: OLANZAPINE 5 MG PO SCH (20:39)
[2017-02-18] MEDS: MIRTAZAPINE 45 MG PO SCH (20:39)
[2017-02-19] MEDS: HYDROcodone 10MG/APAP 325MG 1 EA TAB PO PRN ×5 (02:17→20:08)
[2017-02-19] MEDS: CYCLOBENZAPRINE HCL 10 MG TAB PO PRN ×3 (02:18→18:03)
[2017-02-19] MEDS: LEVALBUTEROL NEBS 1.25 MG/3 ML VIAL NEB SCH ×3 (08:45→20:49)
[2017-02-19] MEDS: NON-FORMULARY MEDICATION 1 EA MIS (Dexlansoprazole [Dexilant] 60 MG) PO SCH (09:09)
[2017-02-19] MEDS: NON-FORMULARY MEDICATION 1 EA MIS (Duloxetine Hcl [Cymbalta] 60 MG) PO SCH (09:09)
[2017-02-19] MEDS: AMLODIPINE BESYLATE BENAZEPRIL PO SCH (09:09)
[2017-02-19] MEDS: DOCUSATE SODIUM 100 MG CAP PO SCH (09:09)
[2017-02-19] MEDS: RIVAROXABAN 10 MG TAB PO SCH (09:09)
--- NOTE | 2017-02-19 11:33 | PN ---
DATE: 02/19/17 SUBJECTIVE: The patient is now 6 days after her left total knee arthroplasty and is in a vigorous program of physical therapy rehabilitation postoperatively to allow her to return home safely. She does have steps on both sides of her house and will require confidence and technical application that she will safely be able to traverse those steps as she goes home. She is off of tobacco use at this time. She had a significant hypoxic episode over this weekend, which was a concern to everyone, and has responded with increased pulmonary hygiene and bronchodilator therapy and seems to be doing a little better today. She was 92% on room air before an ambulation study. She ambulated and after walking down the poole, she was still 92%. By the time she got back after an extended walk, she was 85% on arrival in her room and then was up to 88% shortly thereafter. They placed her on 1 liter nasal cannula oxygen and she was up into the 90s%. This is significantly improved yesterday and the day before. Whether she had a slight exacerbation of chronic obstructive pulmonary disease or the possibility of a small hemodynamically stable pulmonary embolism event, to be determined. She will continue on DVT prophylaxis. OBJECTIVE: LUNGS: Diminished breath sounds. HEART: Regular. GENERAL: The patient is awake and alert. She is ambulating with hardly any limp at this time. She verbalizes that she intends to stay off of tobacco when she goes home. Repeat followup of her ambulation study tomorrow and the next day with continued therapy and strengthening to continue. ASSESSMENT: 1. Postoperative day #6, left total knee arthroplasty, performed by Dr. Lowe, orthopedic surgeon. 2. Chronic osteoarthritis, having failed outpatient therapy and requiring surgical intervention to assist with symptom control. 3. Chronic obstructive pulmonary disease with an acute exacerbation with associated hypoxia, showing some improvement. 4. History of chronic tobacco abuse, now stopped, currently on nicotine patches. 5. Significant hypoxia, requiring close observation and followup before being discharged. PLAN: We will continue with repeat ambulation study later this afternoon and again tomorrow as plans are made to improve her competency in traversing steps and to increase her strength until she is able to safely return home. Reevaluate tomorrow to see if she will require oxygen at home. The patient very much does not wish to have oxygen unless she needs it. #[id number] [facility]
[2017-02-19] MEDS: traMADol HCL 50 MG TAB PO PRN ×2 (18:32→22:42)
[2017-02-19] MEDS: MIRTAZAPINE 45 MG PO SCH (20:45)
[2017-02-19] MEDS: ZOLPIDEM TARTRATE 5 MG TAB PO PRN (20:45)
[2017-02-19] MEDS: OLANZAPINE 5 MG PO SCH (20:46)
[2017-02-20] MEDS: HYDROcodone 10MG/APAP 325MG 1 EA TAB PO PRN ×4 (07:01→18:45)
[2017-02-20] MEDS: CYCLOBENZAPRINE HCL 10 MG TAB PO PRN ×3 (08:06→21:17)
[2017-02-20] MEDS: traMADol HCL 50 MG TAB PO PRN ×3 (08:06→16:06)
[2017-02-20] MEDS: LEVALBUTEROL NEBS 1.25 MG/3 ML VIAL NEB SCH ×4 (08:58→20:54)
[2017-02-20] MEDS: DOCUSATE SODIUM 100 MG CAP PO SCH (09:24)
[2017-02-20] MEDS: RIVAROXABAN 10 MG TAB PO SCH (09:24)
[2017-02-20] MEDS: AMLODIPINE BESYLATE BENAZEPRIL PO SCH (09:24)
[2017-02-20] MEDS: NON-FORMULARY MEDICATION 1 EA MIS (Dexlansoprazole [Dexilant] 60 MG) PO SCH (09:24)
[2017-02-20] MEDS: NON-FORMULARY MEDICATION 1 EA MIS (Duloxetine Hcl [Cymbalta] 60 MG) PO SCH (09:24)
--- NOTE | 2017-02-20 09:28 | PN ---
DATE: 02/20/17 SUBJECTIVE: The patient is ambulating with therapist in the hallway. Hardly any limp is noted and she states the pain is improving day by day. She has a series of steps in order to get in and out of her home and further competency and experience on local steps as part of therapy will continue. Significant hypoxia has been noted for the last 3 to 4 days, which has shown some significant improvement. OBJECTIVE: VITAL SIGNS: Afebrile. Pulse 81. Blood pressure 132/74. Ambulation study does reveal saturation on oxygen at rest was 98%, then she ambulated on room air and dropped to 92% and stayed at 92% even after she returns back to her room, showing a fairly significant improvement compared especially to 2 days ago. LUNGS: Diminished breath sounds. HEART: Regular. ABDOMEN: Soft. EXTREMITIES: left knee dressing is clean. ASSESSMENT: 1. Postoperative day #7, left total knee arthroplasty. 2. Osteoarthritis, failing to respond to outpatient therapy and requiring surgical intervention to assist with symptom control. 3. Chronic tobacco abuse. 4. Chronic obstructive pulmonary disease secondary to tobacco consumption. 5. Significant hypoxic state, showing some further resolution as pulmonary hygiene and pulmonary bronchodilator therapy has continued. Possibility of inspissated mucus plug clearing versus small shower or pulmonary emboli versus moderate exacerbation of chronic obstructive pulmonary disease, showing improvement and stabilization at the present time. PLAN: Continue close observation with repeat ambulation in the morning and if continues to do well, the patient will be able to be discharged home without oxygen. She is going to need close followup with Dr. Wallace in the clinic after discharge. Special emphasis upon not smoking again important. #[id number] [facility]
[2017-02-20] MEDS: MIRTAZAPINE 45 MG PO SCH (21:15)
[2017-02-20] MEDS: OLANZAPINE 5 MG PO SCH (21:16)
[2017-02-20] MEDS: ZOLPIDEM TARTRATE 5 MG TAB PO PRN (23:58)
[2017-02-21] MEDS: HYDROcodone 10MG/APAP 325MG 1 EA TAB PO PRN ×2 (08:20→12:33)
[2017-02-21] MEDS: RIVAROXABAN 10 MG TAB PO SCH (08:20)
[2017-02-21] MEDS: DOCUSATE SODIUM 100 MG CAP PO SCH (08:20)
[2017-02-21] MEDS: NON-FORMULARY MEDICATION 1 EA MIS (Duloxetine Hcl [Cymbalta] 60 MG) PO SCH (08:22)
[2017-02-21] MEDS: AMLODIPINE BESYLATE BENAZEPRIL PO SCH (08:24)
[2017-02-21] MEDS: NON-FORMULARY MEDICATION 1 EA MIS (Dexlansoprazole [Dexilant] 60 MG) PO SCH (08:25)
[2017-02-21 08:40] VITALS: BP 133/72
[2017-02-21 08:41] VITALS: TEMP 98.3
[2017-02-21] MEDS: LEVALBUTEROL NEBS 1.25 MG/3 ML VIAL NEB SCH ×2 (08:45→12:54)
[2017-02-21] MEDS: traMADol HCL 50 MG TAB PO PRN (09:12)
[2017-02-21] MEDS: CYCLOBENZAPRINE HCL 10 MG TAB PO PRN (10:39)
--- NOTE | 2017-02-21 13:28 | DS ---
SUPERVISING PHYSICIAN: Fredis Tristan MD DISCHARGE DIAGNOSIS: 1. Osteoarthritis of the left knee status post left total knee arthroplasty, postoperative day #8, performed by Dr. Adalberto Lowe, orthopedic surgeon. 2. Chronic low back pain. 3. Chronic hypertension. 4. Chronic depression. HISTORY OF PRESENT ILLNESS: This is a 66-year-old female patient who was admitted originally on 02/13/17 for elective orthopedic surgical intervention because of chronic left knee pain. She has previously had a right total knee arthroplasty. Due to the significant pain, she had requested Dr. Adalberto Lowe, orthopedic surgeon, for surgical intervention for a left total knee arthroplasty. Postoperatively, she did well. She did have some pain issues on postoperative day #1 and her physical therapy initially slowed, but later progressed well. She also had some issues with hypoxia. Her oxygen saturations dropped into the upper 70s without oxygen and for several days she needed oxygen to maintain saturations in the low 90s. She was given aggressive pulmonary hygiene including percussion and IPPB. She was discharged from the Acute Care setting to the Swing Bed setting on 02/16/17. HOSPITAL COURSE: She continued to have low saturations for a day or two, but then with her physical therapy as well as good pulmonary hygiene, her oxygen saturations came up to the mid-90s. She no longer required oxygen. Her vital signs remained stable. Her O2 saturation is 96% to 99% on room air. She is to be discharged home today in stable condition. DISCHARGE PLAN: The patient will be discharged home in stable condition. She will be continuing her physical therapy for strengthening and conditioning at [facility] and physical therapy department. She has a followup with Dr. Adalberto Lowe on 03/02/17 at 9:45 AM. She is discharged home on her routine medications as well as cyclobenzaprine, Xarelto for 4 more days and her pain medications. She does take hydrocodone chronically, so she has two prescriptions, one for her postoperative issues per Dr. Lowe for hydrocodone and then she has continuation of her pain medications from Dr. Wallace for her chronic pain medications. She will followup with Dr. Wallace as he has instructed. She is to resume her previous diet. She is also to increase her activity as per physical therapy. She is to followup with Dr. Lowe or the hospital for any further problems or complications. DISCHARGE MEDICATIONS: 1. Dexilant. 2. Lotrel. 3. Ambien. 4. Hydrocodone. 5. Klonopin. 6. Remeron. 7. Zyprexa. 8. Cymbalta. 9. Cyclobenzaprine. 10. Docusate sodium. 11. Xarelto. #[id number] [facility]
[2017-02-21 14:58] VITALS: O2SAT 93
--- NOTE | 2017-02-22 08:55 | PN ---
DATE: 02/21/17 SUBJECTIVE: Adali is doing well and she is actually requesting to be discharged. OBJECTIVE: Afebrile. Vital signs stable. Wound is clean. There are no signs or symptoms of infection. ASSESSMENT: Status post total knee arthroplasty. PLAN: She will be discharged home with outpatient physical therapy. She has been given appropriate followup in clinic. #[id number] [facility]
== END 2017-02-21 13:25 | disposition home or self-care (01) | DRG 560 ==
LOC: MS 15:35
PROVIDERS: ADMIT Nurse Practitioner Acute Care; ATTEND Nurse Practitioner Acute Care
DX: Z47.1 Aftercare following joint replacement surgery (principal); J44.1 Chronic obstructive pulmonary disease with (acute) exacerbation; G89.29 Other chronic pain; M54.5 Low back pain; I10 Essential (primary) hypertension; F32.9 Major depressive disorder, single episode, unspecified; R09.02 Hypoxemia; F17.210 Nicotine dependence, cigarettes, uncomplicated; Z88.5 Allergy status to narcotic agent

== ENCOUNTER → 2017-05-28 | Outpatient (CLI) | payer BC | LOC: GMAJ 10:49 | PROVIDERS: ATTEND Family Medicine | DX: I10 Essential (primary) hypertension (principal) ==

== ENCOUNTER → 2017-10-30 | Outpatient (CLI) | payer MEDICARE, BC | LOC: GMAJ 16:39 | PROVIDERS: ATTEND Family Medicine | DX: I10 Essential (primary) hypertension (principal) ==

== ENCOUNTER → 2017-11-07 | Outpatient (CLI) | payer MEDICARE, BC ==
--- NOTE | 2017-11-08 12:41 | MAM ---
EXAM DESCRIPTION: 3D Screening BILATERAL : Digital Mammography. CLINICAL HISTORY: 67 years Female SCREENING . No complaints. No family history breast cancer. Childbirth. Postmenopausal. Has taken HRT 5 or more years ago.. COMPARISON: prior. No prior reports available. Reports from prior examinations also reviewed. Report from prior examination also reviewed. TECHNIQUE: Bilateral CC and MLO projection full-field images, 3-D tomosynthesis digital mammographic technique. CAD not utilized. FINDINGS: The breast parenchymal density pattern is: Scattered areas of fibroglandular density. No skin thickening or nipple retraction. Bilateral microcalcifications and coarse calcification in the left breast. Mass density versus focal asymmetry versus overlapping tissues in the retroareolar left breast at the 600 clock position, 3 cm from the nipple. No new focal, stellate mass or density, focal asymmetry , and no suspicious microcalcifications right breast IMPRESSION: BI-RADS CATEGORY: 0 - INCOMPLETE- Need additional imaging evaluation. FOLLOW-UP: Recall for additional imaging: Bilateral 3-D tomosynthesis full field images. 2-D digital spot compression region of interest right breast. Followed by targeted left breast ultrasound if indicated by diagnostic images.. Written communication concerning the IMPRESSION and Follow-up, will be mailed to the patient and referring health care provider. Electronically signed by: Juan Perez MD 11/08/2017 12:40 PM CDT
== END ==
LOC: MAMMO 13:22
PROVIDERS: ATTEND Family Medicine
DX: Z12.31 Encounter for screening mammogram for malignant neoplasm of breast (principal)

== ENCOUNTER → 2017-11-22 | Outpatient (CLI) | payer MEDICARE, BC ==
--- NOTE | 2017-11-22 14:35 | US ---
EXAM DESCRIPTION: Breast,Left: Ultrasound CLINICAL HISTORY: 67 yearsFemaleABNORMAL MAMMO COMPARISON: Digital diagnostic mammogram left breast on the same visit. Other TECHNIQUE: Transcutaneous scanning of the retroareolar left breast utilizing valentine-scale and Doppler modes. Scanning performed by the office engineer and Dr. Perez. FINDINGS: Scanning of the retroareolar breast with emphasis at the 600 clock position, 3 cm from the nipple. Heterogeneous fibroglandular and fatty echotexture. Small normal-sized ducts are seen. No distinct solid mass or cyst. No large calcifications or parenchymal edema. No overlying skin changes. No abnormal vascularity. IMPRESSION: 1. Bi-Rads Category 2: Benign. 2. Digital tomosynthesis 3-D bilateral diagnostic mammography examination and report on this visit. The FINDINGS and the FOLLOW-UP plan were reviewed in person with the patient after the examination. Written communication explaining the IMPRESSION and FOLLOW-UP will be mailed to the patient and referring care provider. Electronically signed by: Juan Perez MD 11/22/2017 2:33 PM CDT
--- NOTE | 2017-11-22 14:43 | MAM ---
EXAM DESCRIPTION: 3D Diagnostic, Bilateral: Digital Mammography CLINICAL HISTORY: 67 yearsFemaleABNORMAL MAMMO focal asymmetry retroareolar left breast.. COMPARISON: 3-D tomosynthesis bilateral screening mammography 11/07/2017... Report from prior examination also reviewed. TECHNIQUE: Bilateral LM projection full-field images, 3-D tomosynthesis digital mammographic technique. 2-D digital spot compression of the retroareolar left breast, LM and CC projections. CAD not utilized. FINDINGS: The breast parenchymal density pattern is: Scattered areas of fibroglandular density. No skin thickening or nipple retraction bilateral axillary lymph nodes. Coarse calcification central left breast. Focal asymmetry is faintly seen at the 600 clock position of the left breast 3 cm from the nipple primarily in the CC spot compression image. Ultrasound: Scanning of the retroareolar breast with emphasis at the 600 clock position, 3 cm from the nipple. Heterogeneous fibroglandular and fatty echotexture. Small normal-sized ducts are seen. No distinct solid mass or cyst. No large calcifications or parenchymal edema. No overlying skin changes. No abnormal vascularity. IMPRESSION: BI-RADS CATEGORY: 2 - BENIGN FINDINGS. FOLLOW UP: Return to routine digital bilateral screening, one year interval from October 2017. The FINDINGS and the FOLLOW-UP plan were reviewed in person with the patient after the examination. Written communication explaining the IMPRESSION and FOLLOW-UP will be mailed to the patient and referring care provider. According to the [employer], yearly mammograms are recommended starting at age 40 and continuing as long as a woman is in good health. Any breast change noted on a breast self-exam should be reported promptly to the patient's healthcare provider. Breast MRI is recommended for women with an approximately 20-25% or greater lifetime risk of breast cancer, including women with a strong family history of breast or ovarian cancer and women who have been treated for Hodgkin's disease. A negative mammographic report should not delay tissue diagnosis in patients with significant clinical history or physical findings. Extremely dense breast tissue limits the sensitivity of digital mammography. Electronically signed by: Juan Perez MD 11/22/2017 2:41 PM CDT
== END ==
LOC: MAMMO 13:00
PROVIDERS: ATTEND Family Medicine
DX: R92.8 Other abnormal and inconclusive findings on diagnostic imaging of breast (principal)
CPT/HCPCS: 76641; 77066; G0279

== ENCOUNTER 2018-03-17 13:25 | Emergency (ER) | payer MEDICARE, BC ==
[2018-03-17 13:48] VITALS: BP 122/32; TEMP 98.3; O2SAT 92
[2018-03-17] MEDS ORDERED: SULFA/TRIMETH 800/160 (DS) TAB 1 EA TAB PO ONE (14:07)
[2018-03-17] MEDS ORDERED: TETANUS,DIPHTHERIA,PERTUSSIS 1 EA SYG IM ONE (14:08)
--- NOTE | 2018-03-17 14:10 | ED.PDOC ---
History of Present Illness - General Chief Complaint: Laceration Stated Complaint: Laceration to head Time Seen by Provider: 03/17/18 13:28 Source: patient Exam Limitations: no limitations - History of Present Illness Initial Comments: the patient is a 67-year-old female presenting to the emergency room after having fallen while getting up on a stool to get something out of a closet. She fell backwards and sideways a little bit and hit her right parieto- occipital area on a door jam. She did not hit it on the floor. No loss of consciousness. No neck pain. Mild pain around the laceration site. She does have a 2/3 inch vertical laceration that is through the skin. This largely hemostatic at this point. She probably lost 5 cc of blood. She is pleasant and cooperative alert and oriented. No undue headache and no significant neck pain. no dizziness. No syncope. No signs or symptoms of infection otherwise. She does not take any blood thinners. Timing/Duration: momentarily Severity: moderate Improving Factors: nothing Worsening Factors: nothing Associated Symptoms: denies symptoms Allergies/Adverse Reactions: Allergies Propoxyphene [From Darvon] Allergy (Verified 03/17/18 13:50) Home Medications: Ambulatory Orders Dexlansoprazole [Dexilant] 60 mg PO DAILY #0 11/01/12 Amlodipine Besylate-Benazepril [Lotrel 10-40 mg] 1 cap PO DAILY 09/10/14 Hydrocodone-Acetaminophen [Branch] 7.5 tab PO TID PRN 09/10/14 Zolpidem Tartrate [Ambien] 10 mg PO BEDTIME PRN 09/10/14 Mirtazapine [Remeron] 45 mg PO BEDTIME 09/15/16 cloNAZepam [Klonopin] 0.5 mg PO TID 09/15/16 Duloxetine HCl [Cymbalta] 60 mg PO DAILY 02/12/17 Olanzapine [Zyprexa] 5 mg PO BEDTIME 02/12/17 Methylphenidate HCl [Ritalin] 10 mg PO TID 03/17/18 Review of Systems - Review of Systems Constitutional: States: no symptoms reported EENTM: States: no symptoms reported Respiratory: States: no symptoms reported Cardiology: States: no symptoms reported Gastrointestinal/Abdominal: States: no symptoms reported Genitourinary: States: no symptoms reported Musculoskeletal: States: no symptoms reported Skin: States: see HPI Neurological: States: headache Endocrine: States: no symptoms reported All other Systems: No Change from Baseline Past Medical History (General) - Patient Medical History Hx Seizures: No Hx Stroke: No Hx Asthma: No Hx of COPD: No Hx Cardiac Disorders: No Hx Congestive Heart Failure: No Hx Pacemaker: No Hx Hypertension: Yes Hx Diabetes: No Hx Gastroesophageal Reflux: Yes Hx MRSA: No Surgical History: Hysterectomy, other - Vaccination History Hx Tetanus, Diphtheria Vaccination: Yes Hx Influenza Vaccination: Yes Hx Pneumococcal Vaccination: No - Social History Hx Tobacco Use: Yes - Quit 2005 Hx Alcohol Use: No Hx Substance Use: No Hx Substance Use Treatment: No Hx Depression: No Hx Physical Abuse: No Hx Emotional Abuse: No - Female History Patient : No Family Medical History - Family History Mother Family History: No Known Hx Family Hypertension: Yes Hx Family;Other: Patient stated she did not feel like talking about this at this time. Questions were withheld. 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 there is no evidence of any concussion. No undue headache. No altered mental status. No neurological changes. She has a 2/3 inch laceration over the right parietal occipital area. This extends through the skin but not down to the bone. The wound is hemostatic by her time of arrival here. Risk and benefits were explained and the patient did agree to proceed. The wound is cleaned with hydrogen peroxide. 2 christian were placed for reapproximation. Patient tolerated procedure well. [place] can come out in 5-7 days. ER warnings are given for any worsening of headache or altered mental status. Follow up for routine care otherwise. The patient was given 1 dose of Bactrim and a tetanus shot here today. Departure - Departure Clinical Impression: Accidental laceration Disposition: Discharge to Home or Self Care Condition: Fair Departure Forms: ED Discharge - Pt. Copy, Patient Portal Self Enrollment Instructions: DI for Laceration Repair, DI for Laceration Repair -- Christian Diet: regular diet Activity: increase activity as tolerated Referrals: Landon Wallace MD [Primary Care Provider] - 1-2 Weeks Home Medications: Ambulatory Orders Dexlansoprazole [Dexilant] 60 mg PO DAILY #0 11/01/12 Amlodipine Besylate-Benazepril [Lotrel 10-40 mg] 1 cap PO DAILY 09/10/14 Hydrocodone-Acetaminophen [Branch] 7.5 tab PO TID PRN 09/10/14 Zolpidem Tartrate [Ambien] 10 mg PO BEDTIME PRN 09/10/14 Mirtazapine [Remeron] 45 mg PO BEDTIME 09/15/16 cloNAZepam [Klonopin] 0.5 mg PO TID 09/15/16 Duloxetine HCl [Cymbalta] 60 mg PO DAILY 02/12/17 Olanzapine [Zyprexa] 5 mg PO BEDTIME 02/12/17 Methylphenidate HCl [Ritalin] 10 mg PO TID 03/17/18 Additional Instructions: the patient is a 67-year-old female presenting to emergency room after having hit her head on a door jam. there is no evidence of any concussion. No undue headache. No altered mental status. No neurological changes. She has a 2/3 inch laceration over the right parietal occipital area. This extends through the skin but not down to the bone. The wound is hemostatic by her time of arrival here. Risk and benefits were explained and the patient did agree to proceed. The wound is cleaned with hydrogen peroxide. 2 christian were placed for reapproximation. Patient tolerated procedure well. [facility] can come out in 5-7 days. ER warnings are given for any worsening of headache or altered mental status. Follow up for routine care otherwise. The patient was given 1 dose of Bactrim and a tetanus shot here today.
== END 2018-03-17 14:30 | disposition home or self-care (01) ==
LOC: ER 13:25
DX: S01.01XA Laceration without foreign body of scalp, initial encounter (principal); I10 Essential (primary) hypertension; K21.9 Gastro-esophageal reflux disease without esophagitis; Z87.891 Personal history of nicotine dependence; Z79.899 Other long term (current) drug therapy; Z88.8 Allergy status to other drugs, medicaments and biological substances; W01.198A Fall on same level from slipping, tripping and stumbling with subsequent striking against other object, initial encounter; Y92.89 Other specified places as the place of occurrence of the external cause; Z23 Encounter for immunization

== ENCOUNTER → 2018-06-10 | Outpatient (CLI) | payer MEDICARE, BC ==
--- NOTE | 2018-06-10 14:31 | MRI ---
EXAM DESCRIPTION: Lumbar Spine w/o Contrast : Magnetic Resonance Imaging. CLINICAL HISTORY: RADICULOPATHY LUMBAR REGION COMPARISON: MRI scan lumbar spine without contrast 08/12/2014. TECHNIQUE: Multiplanar, multiple standard sequences, non contrast MRI, lumbar spine. FINDINGS: Multiple levels of disc desiccation. Exaggerated lumbar lordosis. L1-L4 levoscoliosis. L5-S1: Disc desiccation and trace anterolisthesis 1 mm. Tiny posterior midline bulge. Bilateral moderate facet arthrosis and hypertrophy. Bilateral moderate foraminal narrowing with the disc abutting the exiting left L5 nerve. This has progressed since the prior study. Mild canal narrowing. Anterior circumscribed hyperintense T1 and T2 signal in the inferior L5 endplate indicative of a bony hemangioma and stable. L4-5: Disc desiccation and minimal disc space loss. Tiny posterior midline 3 mm bulge. Flavum ligament hypertrophy posteriorly more on the left associated with left facet joint arthrosis and hypertrophy. Mild canal narrowing. Mild bilateral foraminal narrowing. Trace anterolisthesis 1 mm. Stable since the prior study. L3-4: Disc desiccation and minimal disc space loss. No posterior bulging. Minimal flavum ligament hypertrophy bilaterally. Canal and bilateral foramina are patent. Stable since the prior study. L2-3: Normal signal in the disc and disc space preserved. Posterior elements unremarkable. Canal and foramina are patent. No change since the prior study. L1-L2: Normal signal in the disc and disc space preserved. Posterior elements unremarkable. Canal and foramina are patent. Conus terminates at this level. Stable since the prior study. T12-L1: Normal signal in the disc and disc space preserved. Canal and foramina are patent with normal posterior elements. No cord impingement. Normal signal in the cord. No change since the prior study. Paravertebral soft tissues showing minimal paraspinal atrophy.. Normal marrow signal in the remaining vertebral bodies and the posterior elements. Vertebral bodies are not compressed at any level. IMPRESSION: 1. Trace anterolisthesis L5-S1. Disc bulge into the left foramen abutting the exiting left L5 nerve. This is progressed since the prior study. 2. Trace anterolisthesis L4-5. Tiny posterior bulge. Trace anterolisthesis. Left facet joint and flavum ligament hypertrophy. Bilateral foraminal narrowing more on the left. No change since the prior study. Electronically signed by: Juan Perez MD 06/10/2018 2:28 PM SHOP COORDINATOR
== END ==
LOC: MRI 10:00
PROVIDERS: ATTEND Family Medicine
DX: M51.17 Intervertebral disc disorders with radiculopathy, lumbosacral region (principal)

== ENCOUNTER → 2020-01-26 | Outpatient (CLI) | payer MEDICARE | LOC: GMAJ 17:12 | PROVIDERS: ATTEND Family Medicine | DX: I10 Essential (primary) hypertension (principal) ==